=== PATIENT | female | born 1960 | race Caucasian/White ===

== ENCOUNTER 2016-11-23 07:57 | Emergency (ER) | payer BC ==
[~2016-11-23] VITALS: Ht 165.1 cm; Wt 68.0 kg
[~2016-11-23 07:57] MED LIST: ADVIL200 M1 OR; AMITRIPTYLIN50 MG PO; AMOXIL500 MG OR; ATENOLOL50 MG PO; BC HEADACH1 OR; CEPHALEXIN500 MG PO; CYCLOBENZAPRINE10 MG PO; FLEXERIL OR; LORTAB 5 OR; METHOCARBAM500 MG PO; MIRTAZAPINE30 MG PO; MOTRIN400 MG OR; NAPROSYN500 MG OR; NO HOME MEDS; TOBRADEX 2.5 ML OP; TORADOL OR; TRAMADOL HCL50 MG PO; ULTRAM50 MG OR
[2016-11-23] MEDS ORDERED: FERROUS SULF325 M1 PO (08:17)
[2016-11-23] MEDS ORDERED: AMLODIPINE5 MG PO (08:17)
[2016-11-23] MEDS ORDERED: ALBUTEROL SUL0.083 % IN (08:18)
[2016-11-23] MEDS ORDERED: FOLIC ACID1 MG PO (08:18)
[2016-11-23] MEDS ORDERED: SINGULAIR10 MG PO (08:19)
[2016-11-23] MEDS ORDERED: QVAR40 MCG IN (08:19)
[2016-11-23 08:33] LABS: HEMATOCRIT 31.5 % (37.0-47.0); HEMOGLOBIN 9.6 g/dl (12.0-16.0); IMMATURE GRANULOCYTES 0.4 % (0.0-1.0); MEAN CELL VOLUME 72.2 fL CALC (80.0-100.0); MEAN CORPUSCULAR HGB CONC 30.5 g/L CALC (32.0-36.0); NEUT# 5.72 thou/uL (2.00-7.15); RED BLOOD COUNT 4.36 mill/uL (4.20-5.60)
[2016-11-23 08:45] LABS: ALBUMIN 4.2 g/dL (3.2-5.0); ALKALINE PHOSPHATASE 106 u/l (38-126); AMYLASE 94 u/l (30-110); ANION GAP 15 (6-22 (CALC)); BILIRUBIN, TOTAL 0.2 mg/dL (0.0-1.4); BUN 10 mg/dL (7-17); BUN/CREATININE RATIO 12 (12-20 (CALC)); CALCIUM 9.2 mg/dL (8.4-10.2); CARBON DIOXIDE 25 mmol/l (22-30); CHLORIDE 106 mmol/l (95-108); CREATININE 0.8 mg/dL (0.5-1.0); GFR > 60 ML/MIN (>=60 (CALC)); GFR FOR AFR.AMER. > 60 ML/MIN (>=60 (CALC)); GLUCOSE 89 mg/dL (65-105); LIPASE 156 u/l (23-300); POTASSIUM 3.2 mmol/l (3.5-5.1); SGOT/AST 17 u/l (14-36); SGPT/ALT 21 u/l (9-52); SODIUM 143 mmol/l (137-146); TOTAL PROTEIN 7.9 g/dL (6.3-8.2)
[2016-11-23 08:57] LABS: MYOGLOBIN 39 ng/mL (0 - 62)
[2016-11-23 11:03] VITALS: BP 148/70
== END 2016-11-23 11:03 | disposition home or self-care (01) | DRG 310 ==
LOC: ED 07:57
PROVIDERS: Emergency Medicine
DX: R00.2 Palpitations (principal); F17.200 Nicotine dependence, unspecified, uncomplicated; R94.31 Abnormal electrocardiogram [ECG] [EKG]

== ENCOUNTER 2017-12-30 06:07 | Day surgery (SDC) | payer BC ==
[~2017-12-30] VITALS: Ht 165.1 cm; Wt 60.3 kg
[~2017-12-30 06:07] MED LIST changes: +ALBUTEROL SUL0.083 % IN; +AMBIEN10 MG PO; +AMLODIPINE5 MG PO; +FERROUS SULF325 M1 PO; +FOLIC ACID1 MG PO; +PAROXETINE10 M1; +QVAR40 MCG IN; +SINGULAIR10 MG PO; +TENORMIN PO
[2017-12-30 07:44] VITALS: BP 112/67
== END 2017-12-30 08:05 | disposition home or self-care (01) | DRG 552 ==
LOC: ORM 06:07
PROVIDERS: ATTEND Anesthesiology Pain Medicine
PROC: 3E0U33Z Introduction of Anti-inflammatory into Joints, Percutaneous Approach (ICD-10-PCS; principal; 2017-12-30)
PROC: 3E0U3BZ Introduction of Anesthetic Agent into Joints, Percutaneous Approach (ICD-10-PCS; 2017-12-30)
DX: M46.1 Sacroiliitis, not elsewhere classified (principal); M54.5 Low back pain

== ENCOUNTER 2018-01-13 07:38 | Day surgery (SDC) | payer BC ==
[~2018-01-13] VITALS: Ht 165.1 cm; Wt 60.3 kg
[2018-01-13 09:35] VITALS: BP 113/55
== END 2018-01-13 10:04 | disposition home or self-care (01) | DRG 552 ==
LOC: ORM 07:38
PROVIDERS: ATTEND Anesthesiology Pain Medicine
PROC: 3E0U33Z Introduction of Anti-inflammatory into Joints, Percutaneous Approach (ICD-10-PCS; principal; 2018-01-13)
PROC: 3E0U3BZ Introduction of Anesthetic Agent into Joints, Percutaneous Approach (ICD-10-PCS; 2018-01-13)
DX: M46.1 Sacroiliitis, not elsewhere classified (principal)

== ENCOUNTER 2018-02-03 07:41 | Day surgery (SDC) | payer BC ==
[2018-02-03 09:22] VITALS: BP 141/62
== END 2018-02-03 10:15 | disposition home or self-care (01) | DRG 552 ==
LOC: ORM 07:41
PROVIDERS: ATTEND Anesthesiology Pain Medicine
PROC: 3E0U33Z Introduction of Anti-inflammatory into Joints, Percutaneous Approach (ICD-10-PCS; principal; 2018-02-03)
PROC: 3E0U3BZ Introduction of Anesthetic Agent into Joints, Percutaneous Approach (ICD-10-PCS; 2018-02-03)
DX: M46.1 Sacroiliitis, not elsewhere classified (principal)

== ENCOUNTER 2021-02-05 21:02 | Emergency (ER) | payer BC ==
[~2021-02-05] VITALS: Ht 165.1 cm; Wt 67.2 kg
[~2021-02-05 21:02] MED LIST changes: +ADVIL200 MG PO; +DICLOFENAC75 MG PO; +DOXEPIN HCL25 MG PO; +VOLTAREN1%GEL TOP
[2021-02-05 21:35] LABS: HEMATOCRIT 37.3 % (37.0-47.0); IMMATURE GRANULOCYTES 0.3 % (0.0-5.0); MEAN CORPUSCULAR HGB 28.2 pG CALC (26.0-32.0); MEAN CORPUSCULAR HGB CONC 31.1 g/dL CAL (32.0-36.0); NEUT# 5.05 thou/uL (2.00-7.15); RED BLOOD COUNT 4.11 mill/uL (4.20-5.60); RED CELL DISTRI WIDTH 14.6 % (11.5-15.5)
[2021-02-05 21:36] LABS: HEMOGLOBIN 11.6 g/dl (12.0-16.0); MEAN CELL VOLUME 90.8 fL CALC (80.0-100.0)
[2021-02-05 21:58] LABS: ALBUMIN 3.7 g/dL (3.2-5.0); ALKALINE PHOSPHATASE 80 u/l (38-126); AMYLASE 125 u/l (30-110); ANION GAP 8 (6-22 (CALC)); BILIRUBIN, TOTAL 0.1 mg/dL (0.0-1.4); BUN 12 mg/dL (8-23); BUN/CREATININE RATIO 14 (12-20 (CALC)); CARBON DIOXIDE 29 mmol/l (22-30); CHLORIDE 104 mmol/l (95-108); CREATININE 0.8 mg/dL (0.5-1.0); GFR > 60 ML/MIN (>=60 (CALC)); GFR FOR AFR.AMER. > 60 ML/MIN (>=60 (CALC)); LIPASE 687 u/l (23-300); SGOT/AST 17 u/l (9-36); SODIUM 137 mmol/l (137-146); TOTAL PROTEIN 6.4 g/dL (6.3-8.2)
[2021-02-05 23:26] LABS: URINE BILIRUBIN - DIPSTICK NEGATIVE (NEGATIVE); URINE BLOOD DIPSTICK SMALL (NEGATIVE); URINE COLOR YELLOW; URINE GLUCOSE - DIPSTICK NEGATIVE (NEGATIVE); URINE KETONE NEGATIVE (NEGATIVE); URINE LEUK ESTERASE NEGATIVE (NEGATIVE); URINE PH 5.5 (4.5-8.0); URINE PROTEIN - DIPSTICK NEGATIVE (NEG-TRACE); URINE SPECIFIC GRAVITY 1.015; URINE UROBILINOGEN - DIPSTICK 0.2 E.U./dL (0.2)
[2021-02-05 23:32] LABS: URINE BACTERIA FEW hpf; URINE NITRITE - DIPSTICK NEGATIVE (Negative); URINE SQUAMOUS EPITHELIAL CELL FEW EPI/hpf (0-FEW); URINE WBC 0-2 WBC/hpf (0-5)
[2021-02-05] MEDS ORDERED: ONDANSETRON4 MG PO (23:50)
[2021-02-05 23:59] VITALS: BP 161/69
== END 2021-02-06 | disposition left against medical advice (07) | DRG 440 ==
LOC: ED 21:02
PROVIDERS: Emergency Medicine
DX: K85.90 Acute pancreatitis without necrosis or infection, unspecified (principal); I10 Essential (primary) hypertension; G47.30 Sleep apnea, unspecified; F41.9 Anxiety disorder, unspecified; Z91.19 Patient's noncompliance with other medical treatment and regimen

== ENCOUNTER 2022-06-23 12:52 | Emergency (ER) | payer OTHER ==
[2022-06-23] VITALS (11 sets, daily range): BP systolic 124–177; BP diastolic 68–112
[~2022-06-23] VITALS: Ht 165.1 cm; Wt 52.0 kg
[~2022-06-23 12:52] MED LIST changes: +ONDANSETRON4 MG PO
[2022-06-23 13:59] LABS: HEMOGLOBIN 10.7 g/dl (12.0-16.0); IMMATURE GRANULOCYTES 0.5 % (0.0-5.0); MEAN CELL VOLUME 94.2 fL CALC (80.0-100.0); MEAN CORPUSCULAR HGB 29.6 pG CALC (26.0-32.0); MEAN CORPUSCULAR HGB CONC 31.5 g/dL CAL (32.0-36.0); NEUT# 10.46 thou/uL (2.00-7.15); RED BLOOD COUNT 3.61 mill/uL (4.20-5.60); RED CELL DISTRI WIDTH 17.8 % (11.5-15.5)
[2022-06-23 14:15] LABS: INTERNATIONAL NORMALIZED RATIO 1.1 RATIO (0.7-1.3); PROTHROMBIN TIME 11.1 SECONDS (9.0-12.5)
[2022-06-23 14:16] LABS: ALBUMIN 3.5 g/dL (3.2-5.0); ALKALINE PHOSPHATASE 574 u/l (38-126); ANION GAP 17 (6-22 (CALC)); BILIRUBIN, TOTAL 1.1 mg/dL (0.0-1.4); BUN 11 mg/dL (8-23); BUN/CREATININE RATIO 11 (12-20 (CALC)); CARBON DIOXIDE 20 mmol/l (22-30); CHLORIDE 101 mmol/l (95-108); GFR FOR AFR.AMER. > 60 ML/MIN (>=60 (CALC)); GFR OTHER RACES 56 ML/MIN (>=60 (CALC)); POTASSIUM 4.7 mmol/l (3.5-5.1); SGOT/AST 57 u/l (9-36); SODIUM 133 mmol/l (137-146); TOTAL PROTEIN 6.8 g/dL (6.3-8.2)
[2022-06-23] MEDS ORDERED: ELIQUIS STARTER5 MG PO (15:59)
== END 2022-06-23 16:19 | disposition home or self-care (01) | DRG 301 ==
LOC: ED 12:52
PROVIDERS: Family Medicine
DX: I82.402 Acute embolism and thrombosis of unspecified deep veins of left lower extremity (principal); R16.0 Hepatomegaly, not elsewhere classified; F41.9 Anxiety disorder, unspecified
CPT/HCPCS: Q9967

== ENCOUNTER 2022-07-08 12:24 | Emergency (ER) | payer OTHER ==
[~2022-07-08] VITALS: Ht 160 cm; Wt 52.3 kg
[~2022-07-08 12:24] MED LIST changes: +ELIQUIS STARTER5 MG PO
[2022-07-08 13:30] LABS: HEMATOCRIT 28.7 % (37.0-47.0); IMMATURE GRANULOCYTES 0.4 % (0.0-5.0); MEAN CELL VOLUME 97.6 fL CALC (80.0-100.0); MEAN CORPUSCULAR HGB 30.6 pG CALC (26.0-32.0); MEAN CORPUSCULAR HGB CONC 31.4 g/dL CAL (32.0-36.0); NEUT# 8.64 thou/uL (2.00-7.15); RED BLOOD COUNT 2.94 mill/uL (4.20-5.60); RED CELL DISTRI WIDTH 20.1 % (11.5-15.5)
[2022-07-08 14:01] LABS: ALBUMIN 2.9 g/dL (3.2-5.0); ALKALINE PHOSPHATASE 475 u/l (38-126); ANION GAP 10 (6-22 (CALC)); BILIRUBIN, TOTAL 3.8 mg/dL (0.0-1.4); BUN 11 mg/dL (8-23); BUN/CREATININE RATIO 11 (12-20 (CALC)); CARBON DIOXIDE 25 mmol/l (22-30); CHLORIDE 102 mmol/l (95-108); CREATININE 1.1 mg/dL (0.5-1.0); GFR FOR AFR.AMER. > 60 ML/MIN (>=60 (CALC)); GFR OTHER RACES 50 ML/MIN (>=60 (CALC)); POTASSIUM 4.4 mmol/l (3.5-5.1); SGOT/AST 70 u/l (9-36); SODIUM 133 mmol/l (137-146)
[2022-07-08 15:55] LABS: INTERNATIONAL NORMALIZED RATIO 1.2 RATIO (0.7-1.3); PROTHROMBIN TIME 12.2 SECONDS (9.0-12.5)
[2022-07-08 17:42] VITALS: BP 114/95
[2022-07-08] MEDS ORDERED: LEVAQUIN750 M1 PO (18:42)
== END 2022-07-08 17:42 | disposition home or self-care (01) | DRG 301 ==
LOC: ED 12:24
PROVIDERS: Nurse Practitioner
DX: I82.4Z2 Acute embolism and thrombosis of unspecified deep veins of left distal lower extremity (principal); R16.0 Hepatomegaly, not elsewhere classified; K82.8 Other specified diseases of gallbladder; Z53.29 Procedure and treatment not carried out because of patient's decision for other reasons
CPT/HCPCS: Q9967

== ENCOUNTER → 2022-07-29 | Emergency (ER) | payer OTHER ==
[~2022-07-29] VITALS: Ht 160 cm; Wt 62.0 kg
[2022-07-29] VITALS (13 sets, daily range): BP systolic 123–163; BP diastolic 59–81
[~2022-07-29] MED LIST changes: +LEVAQUIN750 M1 PO
[2022-07-29 13:25] LABS: HEMATOCRIT 34.3 % (37.0-47.0); HEMOGLOBIN 10.9 g/dl (12.0-16.0); MEAN CELL VOLUME 101.5 fL CALC (80.0-100.0); MEAN CORPUSCULAR HGB 32.2 pG CALC (26.0-32.0); MEAN CORPUSCULAR HGB CONC 31.8 g/dL CAL (32.0-36.0); NEUT# 14.66 thou/uL (2.00-7.15); RED BLOOD COUNT 3.38 mill/uL (4.20-5.60); RED CELL DISTRI WIDTH 16.7 % (11.5-15.5)
[2022-07-29 13:40] LABS: ALBUMIN 2.9 g/dL (3.2-5.0); ALKALINE PHOSPHATASE 670 u/l (38-126); BUN 23 mg/dL (8-23); BUN/CREATININE RATIO 17 (12-20 (CALC)); CHLORIDE 101 mmol/l (95-108); CREATININE 1.4 mg/dL (0.5-1.0); GFR FOR AFR.AMER. 46 ML/MIN (>=60 (CALC)); GFR OTHER RACES 38 ML/MIN (>=60 (CALC)); POTASSIUM 4.1 mmol/l (3.5-5.1); SGOT/AST 100 u/l (9-36); SODIUM 129 mmol/l (137-146); TOTAL PROTEIN 6.9 g/dL (6.3-8.2)
[2022-07-29 13:47] LABS: ACT PARTIAL THROMBO TIME 31.3 SECONDS (20.0-32.5)
[2022-07-29 13:48] LABS: ANION GAP 14 (6-22 (CALC)); CARBON DIOXIDE 18 mmol/l (22-30); INTERNATIONAL NORMALIZED RATIO 1.7 RATIO (0.7-1.3); PROTHROMBIN TIME 16.1 SECONDS (9.0-12.5)
[2022-07-29 13:50] LABS: BILIRUBIN, TOTAL 20.7 mg/dL (0.0-1.4)
== END | disposition home or self-care (01) | DRG 445 ==
LOC: ED 12:27
PROVIDERS: Emergency Medicine
DX: K83.1 Obstruction of bile duct (principal); R06.00 Dyspnea, unspecified; C78.7 Secondary malignant neoplasm of liver and intrahepatic bile duct; C80.1 Malignant (primary) neoplasm, unspecified; R64 Cachexia; I10 Essential (primary) hypertension; F41.9 Anxiety disorder, unspecified; F17.210 Nicotine dependence, cigarettes, uncomplicated; Z86.718 Personal history of other venous thrombosis and embolism; Z79.01 Long term (current) use of anticoagulants; Z86.711 Personal history of pulmonary embolism

== ENCOUNTER 2022-07-30 11:57 | Emergency (ER) | payer OTHER ==
[~2022-07-30] VITALS: Ht 160 cm; Wt 59.4 kg
[2022-07-30] VITALS (16 sets, daily range): BP systolic 115–182; BP diastolic 58–88
[2022-07-30 12:53] LABS: HEMATOCRIT 29.9 % (37.0-47.0); HEMOGLOBIN 9.6 g/dl (12.0-16.0); MEAN CELL VOLUME 101.7 fL CALC (80.0-100.0); MEAN CORPUSCULAR HGB 32.7 pG CALC (26.0-32.0); MEAN CORPUSCULAR HGB CONC 32.1 g/dL CAL (32.0-36.0); NEUT# 14.09 thou/uL (2.00-7.15); RED BLOOD COUNT 2.94 mill/uL (4.20-5.60); RED CELL DISTRI WIDTH 16.5 % (11.5-15.5)
[2022-07-30 13:06] LABS: ALBUMIN 2.6 g/dL (3.2-5.0); CREATININE 1.6 mg/dL (0.5-1.0); POTASSIUM 4.3 mmol/l (3.5-5.1); TOTAL PROTEIN 5.9 g/dL (6.3-8.2)
[2022-07-30 13:08] LABS: BILIRUBIN, TOTAL 19.7 mg/dL (0.0-1.4)
[2022-07-30 13:42] LABS: DIRECT BILIRUBIN 13.8 mg/dl (0.0-0.3)
== END 2022-07-30 19:39 | disposition short-term general hospital (02) | DRG 445 ==
LOC: ED 11:57
PROVIDERS: Emergency Medicine
DX: K83.1 Obstruction of bile duct (principal); C78.7 Secondary malignant neoplasm of liver and intrahepatic bile duct; K82.8 Other specified diseases of gallbladder; R64 Cachexia; C80.1 Malignant (primary) neoplasm, unspecified; I10 Essential (primary) hypertension; F17.210 Nicotine dependence, cigarettes, uncomplicated; Z86.718 Personal history of other venous thrombosis and embolism; Z86.711 Personal history of pulmonary embolism; Z79.01 Long term (current) use of anticoagulants